=== PATIENT | female | born 1975 | race Hispanic/Latino ===

== ENCOUNTER 2017-10-14 14:44 | Inpatient (IN) | payer OTHER, MEDICAID ==
[2017-10-14 14:53] VITALS: O2SAT 100
--- NOTE | 2017-10-14 15:01 | ED PDOC ---
HPI: Psych/Substance Abuse Time Seen by Provider: 10/14/17 14:54 Chief Complaint (Nursing): Psychiatric Evaluation Chief Complaint (Provider): crisis eval History Per: Patient Additional Complaint(s): 42 year old female presents for crisis eval. Patient states she has been increasingly depressed and anxious and is having intermittent suicidal thoughts with no plan. Patient's states that she used to take Klonopin for anxiety but is no longer on any psychiatric meds. Patient offers no acute medical complaints at this time. PMD: Maykel Calderon Past Medical History Reviewed: Historical Data, Nursing Documentation, Vital Signs Vital Signs: Last Vital Signs Temp 100 F H 10/14/17 14:50 Pulse 69 10/14/17 14:50 Resp 18 10/14/17 14:50 BP 150/83 10/14/17 14:50 Pulse Ox 100 10/14/17 14:50 - Medical History PMH: Depression, GERD, Hyperthyroidism (Cara's disease), Rheumatoid Arthritis - Surgical History Surgical History: Cholecystectomy, Tonsillectomy, - Family History Family History: States: No Known Family Hx - Living Arrangements Living Arrangements: With Family - Social History Current smoker - smoking cessation education provided: Yes (started again recently) Alcohol: None Drugs: Denies - Home Medications Home Medications: Ambulatory Orders Medication Instructions Recorded 5-Hydroxytryptophan (5-Htp) [5-Htp] 100 mg PO DAILY 10/14/17 Ascorbic Acid [Vitamin C] 1 tab PO DAILY 10/14/17 Multivitamin [Multi-Vitamin Daily] 1 tab PO DAILY 10/14/17 Selenium [Selenium] 1 tab PO DAILY 10/14/17 Zinc Gluconate [Zinc] 50 mg PO DAILY 10/14/17 methIMAzole [Tapazole] 10 mg PO DAILY 10/14/17 - Allergies Allergies/Adverse Reactions: Allergies Allergy/AdvReac Type Severity Reaction Status Date / Time No Known Allergies Allergy Verified 10/14/17 14:50 Review of Systems ROS Statement: Except As Marked, All Systems Reviewed And Found Negative Cardiovascular: Negative for: Chest Pain Gastrointestinal: Negative for: Nausea, Vomiting Psych: Positive for: Anxiety, Depression, Suicidal ideation (with no plan) Physical Exam - Reviewed Nursing Documentation Reviewed: Yes Vital Signs Reviewed: Yes - Physical Exam Appears: Positive for: Well, Non-toxic, No Acute Distress Skin: Positive for: Normal Color. Negative for: Rash Eye Exam: Positive for: Normal appearance Cardiovascular/Chest: Positive for: Regular Rate, Rhythm Respiratory: Positive for: Normal Breath Sounds Gastrointestinal/Abdominal: Positive for: Soft. Negative for: Tenderness, Distended, Guarding, Rebound Back: Positive for: Normal Inspection Extremity: Positive for: Normal ROM Neurologic/Psych: Positive for: Alert, Oriented - Laboratory Results Result Diagrams: 10/14/17 16:10 10/14/17 16:10 Urine POC: Negative - ECG Interpretation Of ECG: NSR sinus bradycardia 51 beats per minute, no ST changes, reviewed by PA and ED attending O2 Sat by Pulse Oximetry: 100 Pulse Ox Interpretation: Normal - Other Rad CXR X-Ray: Interpreted by Me, Viewed By Me X-Ray Interpretation: no acute finding Medical Decision Making Medical Decision Makin42 year old female here for crisis eval Plan: 1:1 observation Crisis eval CBC CMP BAL UDS UA test Patient will be admitted as per Dr. Meza. UTI noted, patient given initial dose macrobid 100 mg. Ordered entered for 100 mg macrobid BID for 7 days. Patient is medically stable for psychiatric admission. 6:00 pm: Patient started to complain of feeling very anxious, 0.5 mg Xanax tablet provided. Disposition - Clinical Impression Clinical Impression: Depression, Urinary tract infection - Patient ED Disposition Is Patient to be Admitted: No Counseled Patient/Family Regarding: Diagnosis, Need For Followup - Disposition Disposition: Routine/Home Disposition Time: 16:21 Condition: STABLE
[2017-10-14 16:17] LABS: BASO % 0.9 % (0.0-2.0); EOS # 0.1 K/uL (0.0-0.7); EOS % 2.2 % (0.0-4.0); HEMOGLOBIN 14.4 g/dL (12.0-16.0); LYMPH % 17.8 % (20.0-40.0); MEAN CELL VOLUME 92.4 fl (81.0-99.0); MEAN CORPUSCULAR HEMOGLOBIN 31.4 pg (27.0-31.0); MEAN PLATELET VOLUME 8.1 fl (7.2-11.7); MONO # 0.4 K/uL (0.0-0.8); MONO % 6.9 % (0.0-10.0); NEUT % 72.2 % (50.0-75.0); RBC 4.59 Mil/uL (3.80-5.20); RED CELL DISTRIBUTION WIDTH 12.7 % (11.5-14.5); WHITE BLOOD COUNT 5.6 K/uL (4.8-10.8)
[2017-10-14 16:20] LABS: SQUAMOUS EPITHIAL < 1 /hpf (0-5); URINE BACTERIA OCC (<OCC); URINE BILIRUBIN NEGATIVE (NEGATIVE); URINE BLOOD NEGATIVE (NEGATIVE); URINE CLARITY CLEAR (Clear); URINE COLOR YELLOW (YELLOW); URINE GLUCOSE (UA) NEG (Normal); URINE LEUKOCYTE ESTERASE TRACE Leu/uL (Negative); URINE PROTEIN NEGATIVE (NEGATIVE); URINE UROBILINOGEN 0.2-1.0 mg/dL (0.2-1.0)
[2017-10-14 16:26] LABS: ALB/GLOB RATIO 1.1 (1.0-2.1); ALBUMIN 4.3 g/dL (3.5-5.0); ALT/SGPT 22 U/L (9-52); AST/SGOT 19 U/L (14-36); BLOOD UREA NITROGEN 8 mg/dl (7-17); CALCIUM 9.3 mg/dL (8.4-10.2); GFR AFRICAN-AMERICAN > 60; GFR NON-AFRICAN AMERICAN > 60
[2017-10-14 17:08] LABS: BARBITURATES, UR NEGATIVE (NEGATIVE); BENZODIAZEPINES, UR NEGATIVE (NEGATIVE); OPIATES, UR NEGATIVE (NEGATIVE); PHENCYCLIDINE, UR NEGATIVE (NEGATIVE)
--- NOTE | 2017-10-14 17:44 | RAD ---
Date of service: 10/14/2017 HISTORY: clearance COMPARISON: Chest radiograph dated 04/21/2009. FINDINGS: LUNGS: No active pulmonary disease. PLEURA: No significant pleural effusion identified, no pneumothorax apparent. CARDIOVASCULAR: Normal. OSSEOUS STRUCTURES: No significant abnormalities. VISUALIZED UPPER ABDOMEN: Right upper quadrant surgical clips. OTHER FINDINGS: None. IMPRESSION: No active disease.
[2017-10-14] MEDS ORDERED: Alum-Mag Hydrox-Simethicone Susp (30 mL) PO PRN (20:51)
[2017-10-14] MEDS ORDERED: DiphenhydrAMINE 50 mg/ml Inj IM PRN (20:51)
[2017-10-14] MEDS ORDERED: Magnesium Hydroxide Susp 30 ml UD PO PRN (20:51)
--- NOTE | 2017-10-14 21:02 | PCM.BM ---
<Chaitanya Del Cid - Last Filed: 10/14/17 21:02> Treatment Plan Problems - Problems identified on initial assessmt Hopelessness/Helplessness Date Initiated: 10/14/17 Time Initiated: 21:00 Assessment reference: NA Status: Active Priority: 1 Feelings of Worthlessness Date Initiated: 10/14/17 Time Initiated: 21:00 Assessment reference: NA Status: Active Priority: 2 Self Care Deficit Date Initiated: 10/14/17 Time Initiated: 21:01 Assessment reference: NA Status: Active Priority: 3 Altered Sleep Patterns Date Initiated: 10/14/17 Time Initiated: 21:01 Assessment reference: NA Status: Active Priority: 4 Treatment assets and liabiliti Patient Assests: cooperative, educated, self-reliant, negotiates basic needs, cognitively intact Patient Liabilities: medical problems - Milieu Protocol Maintain good personal hygiene: every shift Encourage regular showers, every shift Remind patient to perform daily oral care, every shift Assist patient to perform ADL's Maintain personal safety: daily Educate patient to report safety concerns to staff, daily Monitor environment for contraband/sharps Medication safety: Monitor for expected outcome, potential side effects: daily, Assess barriers to learning: daily, Assess readiness for medication education: daily <Karla Granados - Last Filed: 10/15/17 12:30> - Diagnosis (1) Major depressive disorder Status: Acute Interventions: Medication management, Individual and group therapy, Psychoeducation 10/15/17 12:31 (2) Generalized anxiety disorder Status: Acute Interventions: Medication management, Individual and group therapy, Psychoeducation 10/15/17 12:31 <Candelario Doll - Last Filed: 10/17/17 07:37> Family Contact Family involvement: Family/SO is involved Family contact: Patient declines to allow family contact at present Family contact name: Pt denied. - Goals for Treatment Patient goals for treatment: Pt reported she would still like to feel more in control of her anxiety without relying on Klonopin. Discharge/Continuing Care - Education Needs Education Needs: Patient Medication, Patient Diagnosis/Disease Process, Patient Coping Skills, Patient Community resources, Patient Aftercare Safety Plan - Discharge Discharge Criteria: Tolerates medication w/o severe side effects, Free of Suicidal thoughts, Free of agitation, Normal sleep pattern, Reduction of target symptoms Discharge to:: Home, With Family - Treatment Team Participation Patient/Family/SO Statement: 10/16/17 10:15 Pt was seen in treatment team where she reported she was feeling "more jovial" and "a little bit better." Pt reported that her thoughts remain scattered and she had a nice visit with her friend. Pt discussed a panic attack she had on where she attempted to reality test to calm herself down, but was unable to and had to take a Klonopin. Discharge was discussed for 10/18/17. Discussed with Family/SO: No Was Patient/Family/SO present at Treatment Team Meeting: Yes
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
[2017-10-15 11:02] LABS: T4 7.84 ug/dl (5.5-11.0)
--- NOTE | 2017-10-15 12:32 | PCM.PSYCH ---
Initial Psychiatric Evaluation - Initial Psychiatric Evaluation Type of Admission: Voluntary Legal Status: Capacity Chief Complaint (in patient's own words): "I'm depressed." Patient's Reaction to Hospitalization: HPI: 42 yo F, presents w/ worsening depression and anxiety w/ suicidal ideation w/ no current plan. She reports that she has been feeling depressed and like she is not taking care of her own health. She has not had any psychiatric treatment for over a year. +Poor sleep/appetite +Hopelessness. PPHx: H/p 5 inpatient psychiatric admission at [facility]; h/o 2 suicide attempts by overdose ages 21 +25; no current outpatient treatment; h/o tx w/ Celexa, Proxac, Klonopin and Depakote; past diagnosis of Depression and Anxiety PMHx: Hyperthyroidism; Gastric Sleeve ALL: NKDA SHx: Lives w/ bf in ; works at [employer]; denies drugs/etoh; smokes 1 pack/ week; 9yr old daughter FHx: Father w/ Bipolar Disorder; Brother of heroin OD Current Medications: Active Medications Generic Name Dose Route Start Last Admin Trade Name Freq PRN Reason Stop Dose Admin Acetaminophen 650 mg 10/14/17 20:51 Tylenol 325mg Tab PO Q4 PRN Pain, moderate (4-7) Al Hydrox/Mg Hydrox/Simethicone 30 ml 10/14/17 20:51 Maalox Plus 30 Ml PO Q4 PRN Dyspepsia Bupropion HCl 75 mg 10/15/17 17:00 Wellbutrin PO BID VINCE Clonazepam 0.5 mg 10/15/17 12:26 Klonopin PO Q12 PRN Anxiety Diphenhydramine HCl 50 mg 10/14/17 20:51 Benadryl IM Q6 PRN Extrapyramidal S/S Unable PO Diphenhydramine HCl 50 mg 10/14/17 20:51 Benadryl PO Q6 PRN Extrapyramidal Symptoms Diphenhydramine HCl 50 mg 10/14/17 20:51 Benadryl PO HS PRN Sleep Haloperidol 5 mg 10/14/17 20:51 Haldol PO Q4 PRN Agitation Haloperidol Lactate 5 mg 10/14/17 20:51 Haldol IM Q4 PRN Agitation, Unable to Take PO Lorazepam 1 mg 10/15/17 12:26 Ativan PO Q8 PRN Agitation Magnesium Hydroxide 30 ml 10/14/17 20:51 Milk Of Magnesia PO HS PRN Constipation Methimazole 10 mg 10/15/17 09:00 Tapazole PO DAILY [facility] Multivitamins/Vitamin C 10 ml 10/15/17 12:24 Multi-Delyn Liquid PO DAILY VINCE Nitrofurantoin Macrocrystals 100 mg 10/16/17 07:00 Macrobid PO 10/22/17 07:00 BID VINCE Protocol Past Psychiatric History - Past Psychiatric History Previous Treatment History: Inpatient Pertinent Medical Hx (Current Medical&Sleep Prob, Allergies): Allergies Allergy/AdvReac Type Severity Reaction Status Date / Time No Known Allergies Allergy Verified 10/14/17 14:50 5-Hydroxytryptophan (5-Htp) [5-Htp] 100 mg PO DAILY 10/14/17 Ascorbic Acid [Vitamin C] 1 tab PO DAILY 10/14/17 Multivitamin [Multi-Vitamin Daily] 1 tab PO DAILY 10/14/17 Selenium [Selenium] 1 tab PO DAILY 10/14/17 Zinc Gluconate [Zinc] 50 mg PO DAILY 10/14/17 methIMAzole [Tapazole] 10 mg PO DAILY 10/14/17 Review of Systems - Psychiatric Psychiatric: As Per HPI, Abnormal Sleep Pattern, Anxiety, Change in Appetite, Depression, Difficulty Concentrating, Mood Swings, Suicidal Ideation Mental Status Examination - Personal Presentation Personal Presentation: Looks stated age - Affect Affect: Constricted, Depressed - Motor Activity Motor Activity: Calm - Reliability in Providing Information Reliability in Providing Information: Good - Speech Speech: Organized - Mood Mood: Depressed - Formal Thought Process Formal Thought Process: No Impairment - Hallucinations/Delusions Additional comments: No AH/VH/paranoia/delusions - Obsessions/Compulsions Obsessions: No Compulsions: No - Cognitive Functions Orientation: Person, Place, Situation, Time Sensorium: Alert Attention/Concentration: Attentive Estimate of Intelligence: Average Judgement: Intact, as evidence by: Insight regarding need for hospitalization Memory: Recent intact, as evidence by: Ability to recall events of the day, Remote intact, as evidenced by: Abilit to recall sig. life events, Remote intact , as evidenced by: Ability to recall historical events - Risk Risk: Diminished functioning - Strength & Assets Inventory Strength & Assets Inventory: Cooperative DSM 5 DX - DSM 5 DSM 5 Diagnosis: Major Depressive Disorder; Generalized Anxiety Disorder - Recommended/Plan of Treatment Treatment Recommendations and Plan of Treatment: Major Depressive Disorder; Generalized Anxiety Disorder -Admit to psychiatry unit -Start Wellbutrin 75 mg PO BID -Individual and group therapy -Psychoeducation -Medicine consult -Disposition planning Projected ELOS: 4-7 days Discharge Plan and Discharge Criteria: Discharge when patient is psychiatrically stable - Smoking Cessation Smoking Cessation Initiated: No Reason for not providing: Patient declined
[2017-10-15] MEDS: Multi Vitamins 15 mL UD Oral Solution PO SCH (13:20)
--- NOTE | 2017-10-15 15:31 | CARD ---
APPROVED REPORT Date of service: 10/14/2017 EKG Measurement Heart [id number] <Conclusion> Sinus bradycardia with sinus arrhythmia Otherwise normal ECG
[2017-10-16] MEDS: Multi Vitamins 15 mL UD Oral Solution PO SCH (08:26)
--- NOTE | 2017-10-16 11:10 | PCM.PYCHPN ---
Psychiatric Progress Note - Psychiatric Progress Note Patient seen today, length of contact: Patient evaluated, case discussed w/ team , chart reviewed Patient Chief Complaint: "I'm depressed." Problems Identified/Issues Discussed: Patient reports that she continues to feel depressed, but states that her mood is starting to improve. She reports intermittent feelings of anxiety and states that she had a panic attack yesterday, which was alleviated w/ Klonopin. No current AH/VH/paranoia/delusions/SI/HI. No adverse effects to medications reported. Medication Change: No Medical Record Reviewed: Yes Consults ordered or reviewed: Medicine consult Mental Status Examination - Cognitive Function Orientation: Person, Place, Situation, Time Memory: Intact Attention: WNL Concentration: WNL Association: WNL Fund of Knowledge: [facility] Decription of patient's judgement and insights: Fair I/J - Mood Mood: Depressed, Anxious - Affect Affect: Constricted, Depressed - Formal Thought Process Formal Thought Process: No Impairment Psychotic Thoughts and Behaviors: No AH/VH/paranoia/delusions - Suicidal Ideation Suicidal Ideation: No - Homicidal Ideation Homicidal Ideation: No Goal/Treatment Plan - Goal/Treatment Plan Need for Continued Stay: Remain at risks for inpatient hospitalization, Severe depression anxiety Progress Toward Problem(s) and Goals/Treatment Plan: Major Depressive Disorder; Generalized Anxiety Disorder -Continue Wellbutrin 75 mg PO BID -Klonopin PRN anxiety -Individual and group therapy -Psychoeducation -Medicine consult -Disposition planning Estimated Date of D/C: 10/18/17
[2017-10-16 16:16] VITALS: TEMP 97.2
--- NOTE | 2017-10-17 08:02 | CP.PCM.PN ---
Subjective - Date & Time of Evaluation Date of Evaluation: 10/17/17 Time of Evaluation: 08:01 - Subjective Subjective: pt doing well. no f/c, n/v/d. tx w/ macrobid for uti-c/s noted. c/o irritation after being on anbx. no si/hi, feels depression better. Objective - Vital Signs/Intake and Output Vital Signs (last 24 hours): Temp Pulse Resp BP Pulse Ox 97.2 F L 62 18 101/55 L 100 10/17/17 06:00 10/17/17 06:00 10/17/17 06:00 10/17/17 06:00 10/14/17 20:22 - Medications Medications: Current Medications Acetaminophen (Tylenol 325mg Tab) 650 mg PO Q4 PRN PRN Reason: Pain, moderate (4-7) Al Hydrox/Mg Hydrox/Simethicone (Maalox Plus 30 Ml) 30 ml PO Q4 PRN PRN Reason: Dyspepsia Bupropion HCl (Wellbutrin) 75 mg PO BID [facility] Last Admin: 10/16/17 21:54 Dose: 75 mg Clonazepam (Klonopin) 0.5 mg PO Q12 PRN PRN Reason: Anxiety Last Admin: 10/16/17 16:33 Dose: 0.5 mg Diphenhydramine HCl (Benadryl) 50 mg IM Q6 PRN PRN Reason: Extrapyramidal S/S Unable PO Diphenhydramine HCl (Benadryl) 50 mg PO Q6 PRN PRN Reason: Extrapyramidal Symptoms Diphenhydramine HCl (Benadryl) 50 mg PO HS PRN PRN Reason: Sleep Haloperidol (Haldol) 5 mg PO Q4 PRN PRN Reason: Agitation Haloperidol Lactate (Haldol) 5 mg IM Q4 PRN PRN Reason: Agitation, Unable to Take PO Lorazepam (Ativan) 1 mg PO Q8 PRN PRN Reason: Agitation Magnesium Hydroxide (Milk Of Magnesia) 30 ml PO HS PRN PRN Reason: Constipation Methimazole (Tapazole) 10 mg PO DAILY [facility] Last Admin: 10/16/17 08:25 Dose: 10 mg Multivitamins/Vitamin C (Multi-Delyn Liquid) 15 ml PO DAILY [facility] Nitrofurantoin Macrocrystals (Macrobid) 100 mg PO Q12 VINCE PRN Reason: Protocol Last Admin: 10/16/17 21:54 Dose: 100 mg - Labs Labs: 10/14/17 16:10 10/14/17 16:10 - Constitutional Appears: Well, Non-toxic, No Acute Distress - Head Exam Head Exam: ATRAUMATIC, NORMAL INSPECTION, NORMOCEPHALIC - Eye Exam Eye Exam: EOMI, Normal appearance, PERRL Pupil Exam: NORMAL ACCOMODATION, PERRL - ENT Exam ENT Exam: Mucous Membranes Moist, Normal Exam - Neck Exam Neck Exam: Full ROM, Normal Inspection. absent: Lymphadenopathy - Respiratory Exam Respiratory Exam: Clear to Ausculation Bilateral, NORMAL BREATHING PATTERN - Cardiovascular Exam Cardiovascular Exam: REGULAR RHYTHM, RRR, +S1, +S2. absent: Murmur - GI/Abdominal Exam GI & Abdominal Exam: Soft, Normal Bowel Sounds. absent: Tenderness - Extremities Exam Extremities Exam: Full ROM, Normal Capillary Refill, Normal Inspection. absent : Joint Swelling, Pedal Edema - Back Exam Back Exam: NORMAL INSPECTION - Neurological Exam Neurological Exam: Alert, Awake, CN II-XII Intact, Normal Gait, Oriented x3 - Psychiatric Exam Psychiatric exam: Normal Affect, Normal Mood - Skin Skin Exam: Dry, Intact, Normal Color, Warm Assessment and Plan (1) DVT prophylaxis Status: Acute (2) Depression Status: Acute (3) Hyperthyroidism Status: Acute - Assessment and Plan (Free Text) Assessment: (1) DVT prophylaxis Assessment and Plan: ambulation Status: Acute (2) Depression Assessment and Plan: psych meds interventions, therapies Status: Acute (3) Hyperthyroidism Assessment and Plan: cont methimazole, f/utft, endo consult prn Status: Acute 4-uti w/ yeast infection-f/u c/s, macrobid, diflucan, hydration
[2017-10-17] MEDS ORDERED: Multi Vitamins 15 mL UD Oral Solution PO SCH (09:00)
--- NOTE | 2017-10-17 09:40 | PCM.PYCHPN ---
Psychiatric Progress Note - Psychiatric Progress Note Patient seen today, length of contact: Patient evaluated, case discussed w/ team , chart reviewed Patient Chief Complaint: "I'm depressed." Problems Identified/Issues Discussed: Patient reports that her mood is improving. She is goal oriented towards being discharged tomorrow. She is more hopeful for the future. We discussed coping strategies to deal with her depression and anxiety. She continues to have intermittent anxiety. No current AH/VH/paranoia/delusions/SI/HI. No adverse effects to medications reported. Medication Change: No Medical Record Reviewed: Yes Consults ordered or reviewed: Medicine consult Mental Status Examination - Cognitive Function Orientation: Person, Place, Situation, Time Memory: Intact Attention: WNL Concentration: WNL Association: WNL Fund of Knowledge: [facility] Decription of patient's judgement and insights: Fair I/J - Mood Mood: Depressed, Anxious - Affect Affect: Constricted - Formal Thought Process Formal Thought Process: No Impairment Psychotic Thoughts and Behaviors: No AH/VH/paranoia/delusions - Suicidal Ideation Suicidal Ideation: No - Homicidal Ideation Homicidal Ideation: No Goal/Treatment Plan - Goal/Treatment Plan Need for Continued Stay: Discharge may exacerbated symptoms Progress Toward Problem(s) and Goals/Treatment Plan: Major Depressive Disorder; Generalized Anxiety Disorder; patient is improving clinically, will likely discharge tomorrow -Continue Wellbutrin 75 mg PO BID -Klonopin PRN anxiety -Individual and group therapy -Psychoeducation -Medicine consult -Disposition planning Estimated Date of D/C: 10/18/17
[2017-10-17] MEDS: METRONIDAZOLE 0.75% VAG SCH ×2 (13:47→23:30)
[2017-10-18 05:55] VITALS: BP 115/75; PULSE 76; RESP 20
--- NOTE | 2017-10-18 08:22 | PCM.PYCHDC ---
Mental Status Examination - Mental Status Examination Orientation: Person, Place, Situation, Time Memory: Intact Mood: Neutral Affect: Broad Speech: Appropriate Attention: WNL Concentration: WNL Association: WNL Fund of Knowledge: WNL Formal Thought Process: No Impairment Description of patient's judgement and insight: Fair I/J Psychotic Thoughts and Behaviors: No AH/VH/paranoia/delusions Suicidal Ideation: No Current Homicidal Ideation?: No Discharge Summary - Discharge Note Reason for Hospitalization: HPI: 42 yo F, presents w/ worsening depression and anxiety w/ suicidal ideation w/ no current plan. She reports that she has been feeling depressed and like she is not taking care of her own health. She has not had any psychiatric treatment for over a year. +Poor sleep/appetite +Hopelessness. PPHx: H/p [address] [facility]; h/o 2 suicide attempts by overdose ages 21 +25; no current outpatient treatment; h/o tx w/ Celexa, Proxac, Klonopin and Depakote; past diagnosis of Depression and Anxiety PMHx: Hyperthyroidism; Gastric Sleeve ALL: NKDA SHx: Lives w/ bf in ; works at [employer]; denies drugs/etoh; smokes 1 pack/ week; 9yr old daughter FHx: Father w/ Bipolar Disorder; Brother of heroin OD Consultations:: List each consultation separately and include: 1. Reason for request. 2. Findings. 3. Follow-up Consultations: Medicine consult Summary of Hospital Course include:: 1. Description of specific treatment plan utilized for patients during their course of treatmen. 2. Summarize the time- course for resolution of acute symptoms and/or regressed behaviors. 3. Describe issues identified and worked on during hospitalization. 4. Describe medication utilized. 5. Describe medical problems identified and treated. 6. Reassessment of suicide risk Summary of Hospital Course: Patient was admitted to the psychiatry unit. Individual and group therapy were provided. Patient was stabilized on Wellbutrin 75 mg PO BID and Klonopin PRN acute anxiety. She reports improvement in mood/sleep/appetite. No AH/VH/SI/ HI. She is psychiatrically stable for discharge at this time with outpatient follow-up. - Diagnosis (1) Major depressive disorder Current Visit: Yes Status: Chronic (2) Generalized anxiety disorder Current Visit: Yes Status: Chronic - Final Diagnosis (DSM 5) Condition upon Discharge: STABLE DSM 5: Major Depressive Disorder; Generalized Anxiety Disorder Disposition: HOME/ ROUTINE Follow-up Treatment Plan: Major Depressive Disorder; Generalized Anxiety Disorder -Continue Wellbutrin 75 mg PO BID -Klonopin PRN anxiety -Macrobid for UTI -Individual and group therapy -Psychoeducation -Medicine consult -Discharge w/ outpatient follow-up Prescriptions/Medication Reconciliation: buPROPion [Wellbutrin] 75 mg PO BID #60 tab clonazePAM [Klonopin] 0.5 mg PO Q12 PRN #20 tab PRN Reason: Anxiety Nitrofurantoin Macrocrystals [Macrobid] 100 mg PO Q12 #7 cap - Smoking Cessation Smoking Cessation Medication prescribed: No Reason for not providing: Patient declined - Antipsychotic Medications Pt discharged on 2 or more routine antipsychotic medications: No
[2017-10-18] MEDS: METRONIDAZOLE 0.75% VAG SCH (08:39)
== END 2017-10-18 10:19 | disposition home or self-care (01) | DRG 881 ==
LOC: H.ER 14:44 → H.ERHOLD 17:56 → H.STEP 20:45
PROVIDERS: ADMIT Psychiatry & Neurology Psychiatry; ATTEND Psychiatry & Neurology Psychiatry
PROC: GZHZZZZ Group Psychotherapy (ICD-10-PCS; principal; 2017-10-14)
PROC: GZ58ZZZ Individual Psychotherapy, Cognitive-Behavioral (ICD-10-PCS; 2017-10-14)
DX: F32.9 Major depressive disorder, single episode, unspecified (principal); R45.851 Suicidal ideations; B37.49 Other urogenital candidiasis; F41.1 Generalized anxiety disorder; F41.0 Panic disorder [episodic paroxysmal anxiety]; E06.3 Autoimmune thyroiditis; E05.90 Thyrotoxicosis, unspecified without thyrotoxic crisis or storm; K21.9 Gastro-esophageal reflux disease without esophagitis; M06.9 Rheumatoid arthritis, unspecified; Z87.891 Personal history of nicotine dependence; Z79.899 Other long term (current) drug therapy; Z81.8 Family history of other mental and behavioral disorders

== ENCOUNTER 2017-11-12 19:03 | Emergency (ER) | payer OTHER, MEDICAID ==
[2017-11-12 19:11] VITALS: RESP 16; TEMP 98.5
--- NOTE | 2017-11-12 20:12 | ED PDOC ---
HPI: Female Pain Time Seen by Provider: 11/12/17 19:19 Chief Complaint (Nursing): Abdominal Pain History Per: Patient History/Exam Limitations: no limitations Onset/Duration Of Symptoms: Hrs Current Symptoms Are (Timing): Better Additional Complaint(s): with history of depression, anxiety presenting with vaginal bleeding, states she had a positive test that she took because she was late 6 days for her period, states today she had one episode of heavy vaginal bleeding with clots. Denies pain. No urinary symptoms, no lightheadedness, dizziness, or other symptoms. Past Medical History Reviewed: Historical Data, Nursing Documentation, Vital Signs Vital Signs: Last Vital Signs Temp 98.5 F 11/12/17 19:07 Pulse 79 11/12/17 19:07 Resp 16 11/12/17 19:07 BP 138/83 11/12/17 19:07 Pulse Ox 99 11/12/17 19:07 - Medical History PMH: Anxiety, Depression, GERD, Hyperthyroidism (Cara's disease), Rheumatoid Arthritis Denies: Diabetes, Hepatitis, HIV, HTN, Chronic Kidney Disease, Seizures, Sexually Transmitted Disease - Surgical History Surgical History: Cholecystectomy, Tonsillectomy, - Family History Family History: States: Unknown Family Hx - Home Medications Home Medications: Ambulatory Orders Medication Instructions Recorded methIMAzole [Tapazole] 10 mg PO DAILY 10/14/17 Nitrofurantoin Macrocrystals 100 mg PO Q12 #7 cap 10/16/17 [Macrobid] buPROPion [Wellbutrin] 75 mg PO BID #60 tab 10/16/17 clonazePAM [Klonopin] 0.5 mg PO Q12 PRN #20 tab 10/16/17 metroNIDAZOLE 0.75% [Metrogel 1 applic VAG BID tube 10/18/17 Cream] - Allergies Allergies/Adverse Reactions: Allergies Allergy/AdvReac Type Severity Reaction Status Date / Time No Known Allergies Allergy Verified 11/12/17 19:07 Review of Systems ROS Statement: Except As Marked, All Systems Reviewed And Found Negative Genitourinary Female: Positive for: Vaginal Bleeding Physical Exam - Reviewed Nursing Documentation Reviewed: Yes Vital Signs Reviewed: Yes - Physical Exam Appears: Positive for: Well, Non-toxic, No Acute Distress Head Exam: Positive for: ATRAUMATIC, NORMAL INSPECTION, NORMOCEPHALIC Skin: Positive for: Normal Color, Warm, DRY Eye Exam: Positive for: EOMI, Normal appearance, PERRL ENT: Positive for: Normal ENT Inspection Neck: Positive for: Normal, Painless ROM Cardiovascular/Chest: Positive for: Regular Rate, Rhythm Respiratory: Positive for: CNT, Normal Breath Sounds Gastrointestinal/Abdominal: Positive for: Normal Exam, Soft Pelvic Exam: Positive for: No Cerv. Motion Tender, No Masses, Blood, Other ( Cervical os closed (special education instructor is nurse Laury)) Back: Positive for: Normal Inspection Extremity: Positive for: Normal ROM Neurologic/Psych: Positive for: Alert, Oriented - Laboratory Results Result Diagrams: 11/12/17 20:22 11/12/17 20:22 - ECG O2 Sat by Pulse Oximetry: 99 Pulse Ox Interpretation: Normal Medical Decision Making Medical Decision MakinPM A/P: Hx of anxiety, depression, hyperthyroidism presenting with VB -well appearing, normal vitals -most likely spontaneous miscarriage -will get U/S, labs, and re-eval 9PM EXAM: US , Transvaginal CLINICAL HISTORY: 42 years old, female; Pain and signs and symptoms; Lmp or gestational age (in weeks): 10/09/2017; Other: Heavy bleeding; complicated by abdominal or pelvic pain; Lower ; First trimester; ; Additional info: 4-5wks, , heavy bleeding TECHNIQUE: Real-time transvaginal obstetrical ultrasound of the maternal pelvis and a first trimester with image documentation. Transvaginal imaging was used for better evaluation of the fetus and adnexa. COMPARISON: No relevant prior studies available. FINDINGS: Gestation: No visible intrauterine . No visible ectopic . Placenta/amniotic fluid: Cannot be adequately evaluated due to the early gestational age. Uterus/cervix: Endometrial stripe thickness is 5 mm. There is a nabothian cyst of the cervix. The uterus is anteverted and measures 7.3 x 4.6 x 4.4 cm. No myometrial mass. Ovaries: There is a corpus luteum or hemorrhagic cyst of the right ovary measuring a maximum of 1.5 cm. The right ovary measures 2.8 x 2.1 x 1.6 cm with normal Doppler flow. The left ovary measures 1.6 x 1.3 x 1.0 cm with normal Doppler flow. No mass. Free fluid: No free fluid. IMPRESSION: 1. No visible intrauterine . 2. No visible ectopic . 3. There is a corpus luteum or hemorrhagic cyst of the right ovary measuring a maximum of 1.5 cm. Thank you for allowing us to participate in the care of your patient. Dictated and Authenticated by: Immanuel Wu MD 11/12/2017 8:54 PM Eastern Time ([place] & [place]) Advised patient of results and advised her to see OB as an outpatient. Discharged in stable, well appearing condition. Return precautions advised. Disposition - Clinical Impression Clinical Impression: Spontaneous miscarriage - Disposition Referrals: Maykel Calderon, WILY, C[employer] [Family Provider] - Disposition: Routine/Home Disposition Time: 21:15 Condition: STABLE Instructions: Miscarriage, Dealing With Miscarriage Forms: [facility] (Turkish)
[2017-11-12 20:30] LABS: HEMOGLOBIN 13.3 g/dL (12.0-16.0); MEAN CORPUSCULAR HEMOGLOBIN 31.6 pg (27.0-31.0); RBC 4.19 Mil/uL (3.80-5.20); RED CELL DISTRIBUTION WIDTH 12.9 % (11.5-14.5); WHITE BLOOD COUNT 5.8 K/uL (4.8-10.8)
[2017-11-12 20:51] LABS: BLOOD UREA NITROGEN 11 mg/dl (7-17); CALCIUM 8.6 mg/dL (8.4-10.2); GFR AFRICAN-AMERICAN > 60; GFR NON-AFRICAN AMERICAN > 60
[2017-11-12 21:43] VITALS: BP 115/62; PULSE 84; O2SAT 98
--- NOTE | 2017-11-13 11:34 | US ---
Date of service: 11/12/2017 HISTORY: 4-5wks, , heavy bleeding LMP 10/09/2017. Estimated gestational age by a LMP 4 weeks 6 days. COMPARISON: None available. TECHNIQUE: Transvaginal FINDINGS: UTERUS: Measures 7.3 x 4.6 x 4.4 cm. Normal in size and appearance. No fibroid or other mass lesion seen.No intrauterine gestational sac seen ENDOMETRIUM: Measures 4.6 mm in diameter. Unremarkable. CERVIX: An incidental nabothian cysts is present. Cervical length 3.2 cm and otherwise unremarkable RIGHT OVARY: Measures 2.8 x 2.1 x 1.6 cm. Benign-appearing complex cyst 1.5 x 1.2 x 1.2 cm -corpus luteal cyst and or small hemorrhagic follicular cysts are believe most likely considerations. Normal flow. LEFT OVARY: Measures 1.6 x 1.3 x 1.0 cm. No solid mass. Normal flow. FREE FLUID: No significant free fluid noted. OTHER FINDINGS: None. IMPRESSION: No intrauterine gestation. No visualized ectopic. Clinical correlation and follow-up recommended. Beta HCG levels not known. Probably benign changes in the right ovary as referenced above. Concordant results (preliminary interpretation) provided by [facility].
== END 2017-11-12 21:43 | disposition home or self-care (01) ==
LOC: H.ER 19:03
DX: O03.9 Complete or unspecified spontaneous abortion without complication (principal); O46.90 Antepartum hemorrhage, unspecified, unspecified trimester; E05.90 Thyrotoxicosis, unspecified without thyrotoxic crisis or storm; Z86.59 Personal history of other mental and behavioral disorders; M06.9 Rheumatoid arthritis, unspecified